=== PATIENT | male | born 1950 | race Caucasian/White ===

== ENCOUNTER 2022-01-28 05:52 | Day surgery (SDC) | payer MEDICARE, OTHER ==
[2022-01-21 16:40] LABS: BASOPHILS # (AUTO) 0.1 X10'3 (0-0.2); BASOPHILS % (AUTO) 0.9 % (0-1); EOSINOPHILS # (AUTO) 0.1 X10'3 (0-0.9); EOSINOPHILS % (AUTO) 2.4 % (0-6); LYMPHOCYTES % (AUTO) 18.2 % (21-51); MEAN CORPUSCULAR HEMOGLOBIN 30.7 PG (27.0-31.0); MEAN CORPUSCULAR HGB CONC 33.7 g/dL (33.0-36.5); MEAN CORPUSCULAR VOLUME 91.1 FL (78-98); MONOCYTES # (AUTO) 0.4 X10'3 (0-0.9); MONOCYTES % (AUTO) 7.6 % (2-12); NEUTROPHILS % (AUTO) 70.9 % (42-75); PRE OP HEMATOCRIT 41.6 % (42.0-52.0); PRE OP PLATELET COUNT 217 X10'3 (140-440); RED BLOOD COUNT 4.57 X10'6 (4.70-6.10)
[2022-01-21 17:05] LABS: ALBUMIN 4.3 G/DL (3.4-5.0); ALBUMIN/GLOBULIN RATIO 1.3 (1.1-1.5); ALKALINE PHOSPHATASE 75 IU/L (46-116); BLOOD UREA NITROGEN 19 MG/DL (7-18); CALCIUM 9.1 MG/DL (8.5-10.1); CHLORIDE 99 MMOL/L (99-107); CREATININE 0.76 MG/DL (0.60-1.10); PRE OP ALT 39 U/L (30-65); PRE OP ANION GAP 7 (8-16); PRE OP AST 41 U/L (10-37); PRE OP BILIRUB, TOTAL 0.4 MG/DL (0.0-1.0); PRE OP GLUCOSE 97 MG/DL (70-104); PRE OP POTASSIUM 4.5 MMOL/L (3.4-5.1); PRE OP SODIUM 135 MMOL/L (135-145); TOTAL CARBON DIOXIDE 29.5 MMOL/L (24-32); TOTAL PROTEIN 7.6 G/DL (6.4-8.2); eGFR > 90 ML/MIN
[~2022-01-28] VITALS: Ht 177.8 cm; Wt 59.3 kg
[~2022-01-28 05:52] MED LIST: LEVO75TA98 PO; LORA-269 PO; famotidine 20mg tablet PO ONE; ringers solution, lacted 1,000 ML IV SCH
[2022-01-28 06:15] VITALS: BP 158/91
[2022-01-28] MEDS ORDERED: BUPIVAcaine/PF 7.5mg/ml (0.75%) 10ml vial ONE (06:45)
[2022-01-28] MEDS ORDERED: LIDOcaine 0.5% (5mg/ml) 50ml vial ONE ×2 (07:02→07:16)
[2022-01-28] MEDS ORDERED: ondansetron/PF 4mg/2ml inj IV PRN (07:15)
[2022-01-28] MEDS ORDERED: morphine 2 MG/ML inj. syringe IV PRN (07:15)
[2022-01-28] MEDS ORDERED: hydrALAZINE 20mg/ml inj. IV PRN (07:15)
[2022-01-28] MEDS ORDERED: labetalol 20mg/4ml (5mg/ml) syringe IV PRN (07:15)
[2022-01-28] MEDS ORDERED: fentaNYL/PF 50MCG/1 ML 2ML syringe IV PRN ×2 (07:15)
[2022-01-28] MEDS ORDERED: ringers solution, lacted 1,000 ML IV SCH (07:15)
[2022-01-28] MEDS ORDERED: morphine 4 MG/ML inj SYRINge IV PRN (07:15)
[2022-01-28] MEDS ORDERED: midazolam 1 mg/ML 2ml injection ONE (07:17)
[2022-01-28] MEDS ORDERED: fentaNYL/PF 50MCG/1 ML 2ML syringe ONE (07:17)
[2022-01-28 09:20] VITALS: BP 118/70
[2022-01-28 09:21] VITALS: BP 127/77
--- NOTE | 2022-01-28 09:27 | NUR ---
Received from OR via [facility], accompanied by Anesthesiologist DR. MOORE and report given by Anesthesiolgist. RIGTH FA 20G PIV. LEFT WRIST DRESSING CDI. CSM INTACT, STATES TINGLING. EDUCATION PROVIDED ON SENSATION. PATIENT OFFERED WATER, WITH NO NAUSEA. VSS. BP SLIGHTLY LESS THAN 158SYSTOLIC PREOP. CURRENTLY 127SYSTOLIC. DENIES PAIN. ALERT AND ORIENTED, TALKATIVE.
[2022-01-28 09:30] VITALS: BP_SYST 114; BP_SYST 118; BP_DIAS 69; BP_DIAS 72
--- NOTE | 2022-01-28 09:50 | NUR ---
PATIENT DENIES PAIN. INSTRUCTIONS REVIEWED, SIGNED, AND COPIES GIVEN TO PATIENT. STATES HE UNDERSTANDS INFORMATION. PIV TO RUE REMOVED. PATIENT DRESSED. DRESSING TO LEFT WRIST CONTINUES CDI. ICE SENT WITH WITH PATIENT. ALL BELONGINGS ACCOUNTED FOR. JESSICA, PATIENT'S CAREGIVER, ACCOMPANIED PATIENT. INSTRUCTIONS REVIEWED WITH JESSICA, CAREGIVER. DISCHARGED WITH ALL BELONGINGS AND INSTRUCTIONS.
== END 2022-01-28 09:51 | disposition home or self-care (01) ==
LOC: PAS 05:52
PROVIDERS: ATTEND Orthopaedic Surgery Hand Surgery
DX: M72.0 Palmar fascial fibromatosis [Dupuytren] (principal); D21.12 Benign neoplasm of connective and other soft tissue of left upper limb, including shoulder; F41.9 Anxiety disorder, unspecified; E03.9 Hypothyroidism, unspecified; Z79.899 Other long term (current) drug therapy; Z98.890 Other specified postprocedural states; Z72.89 Other problems related to lifestyle
CPT/HCPCS: 26113; 26123; 26125; 36415; 80053; 82948; 85025; 93005; A6222; J0690; J2250; J3010; J3490; J7030; J7060; J7120; Z7506; Z7512; A4215; A4618; A6449; A7000